=== PATIENT | female | born 1990 | race Caucasian/White ===

== ENCOUNTER 2018-06-01 03:51 | Inpatient (IN) | payer BC ==
[~2018-06-01] VITALS: Ht 172.7 cm; Wt 82.6 kg
[2018-06-01] MEDS ORDERED: OXAZEPAM 15 MG CAP PO ONE (07:15)
[2018-06-01] MEDS ORDERED: LEVO50TA5 PO (07:59)
[2018-06-01] MEDS ORDERED: ACYC400T PO (07:59)
[2018-06-01] MEDS ORDERED: SYMB16INH INH (07:59)
[2018-06-01] MEDS ORDERED: LEXA1TAB PO (07:59)
[2018-06-01] MEDS ORDERED: VITMTA PO (07:59)
[2018-06-01] MEDS ORDERED: RIZA10TA4 PO (07:59)
[2018-06-01] MEDS ORDERED: HYDR50TA70 PO (07:59)
[2018-06-01] MEDS ORDERED: NICOTINE 21MG/24HR 1 EA TRANSDERMAL TD SCH (09:00)
[2018-06-01] MEDS ORDERED: MAALOX 30 ML SUSP *UDC PO PRN (12:00)
[2018-06-01] MEDS ORDERED: traZODone 50 MG TAB PO PRN (12:00)
[2018-06-01 13:00] VITALS: BP 138/98
--- NOTE | 2018-06-01 13:42 | HPEPDOC ---
[facility] Medical History & Physical Date of Admission Jun 01, 2018 History and Physical PCP: Dr Channing Perez [place] ATTENDING: Dr. Maya Tsai HPI: 27yoF transferred from [facility] after being medically cleared. The pt called 911 after drinking 1 pint of Vodka and walking into the riley in her robe, lying in the snow to . The pt was transferred to [facility] and admitted to [facility] for unspecified depression, being medically examined today. No acute medical complaints today. Denies any fevers, chills, weakness, fatigue, CLARK, CP, SOB, cough, palpitations, abdominal pain, N/V/D or changes in bowel or bladder habits. PMHx: Anxiety Depression Self Harm, cutting. States last cut about 6 mo ago. H/O SI Alcohol use Asthma Hypothyroid Oral HSV PSHX: denies SOCHX: Resides in: [facility] Marital Status: single Kids: none Employment: [employer] Tobacco use: denies ETOH: 1 pint Vodka daily to every other day Illicit Drugs: Marijuana last used 3 mo ago IV Drug Use: Denies Tattoos done unprofessionally: Denies FAMHX: Mother: Alive, RA Father: Alive, Alcohol use Siblings: 1 brother, 1 sister Alive, well Children: none Maternal Aunt/Uncle alcohol use. Paternal cousin completed suicide. ROS: As noted in HPI, otherwise 11pt ROS of systems reviewed and remarkable only for LMP 05/30/18. PE: GEN: 27yoF, appears stated age. Well-nourished, well developed. No acute distress. Alert and oriented x 3. Pleasant, interactive. HEENT: Normocephalic, atraumatic. Pupils are equal, round, and reactive to light. Extraocular movements are intact. No nystagmus appreciated. Sclera are nonicteric. Conjunctiva without injection. Nose midline. Nasal turbinates without bogginess. EACs both patent BL. TMs both visualized and peters with good cone of light, no bulging or erythema. No facial asymmetry. Moist mucous membranes. Dentition fair. Pharynx pink and moist, no cobblestoning. Neck supple, trachea midline. No lymphadenopathy or thyromegaly appreciated. CHEST: Regular rate and rhythm, +S1, +S2 LUNGS: Clear to auscultation bilaterally. No wheezes, rales, or rhonchi. Breathing appears symmetric and easy. Patient is speaking in full sentences. No accessory muscle use. ABD: Round, soft, non-tender, non-distended. +Bowel sounds throughout. No rebound or guarding. No costovertebral angle tenderness. EXT: Pulses 2+ bilaterally dorsalis pedis and radial. No lower extremity edema appreciated. SKIN: [place], dry, warm. Capillary refill <2sec. No rashes. NEURO: Alert and oriented x 3. Cranial nerves III-XII are intact. No focal deficits appreciated. EKG: pending A&P: 27yoF transferred from [facility] after being medically cleared. The pt called 911 after drinking 1 pint of Vodka and walking into the riley in her robe , lying in the snow to . The pt was transferred to [facility] and admitted to [facility] for unspecified depression. 1. Psych. Plan per Psychiatry. Obtain baseline EKG to assure the safety of psychiatric medications as they can prolong the QT interval. 2. CBC/CMP/TSH pending. 3. Asthma. Continue Symbicort. Albuterol HFA as needed 4. Follow up with PCP on discharge. 5. Substance use. Management per psychiatry. Add MVI, Thiamine, and Folic Acid supplementation. Withdrawal protocol as per Psychiatry. 6. Synthroid. Continue Synthroid 50mcg daily. TSH pending. 7. Oral HSV. Pt takes Acyclovir daily for prevention, will continue. 8. Staff member Anthony JANSEN present throughout exam. Vital Signs Vital Signs Date Time Temp Pulse Resp B/P (MAP) Pulse Ox O2 Delivery O2 Flow Rate FiO2 06/01/18 12:48 98.4 90 16 133/71 (91) 98 Room Air Laboratory Data Labs 24H Pending Home Medications Scheduled Budesonide/Formoterol (Symbicort 160-4.5 Mcg/Act) 60 Puff/Inhaler Aers, 2 PUFF INH DAILY Escitalopram Oxalate (Lexapro) 10 Mg Tab, 20 MG PO DAILY Levothyroxine Sodium (Synthroid) 50 Mcg Tab, 50 MCG PO DAILY Multivitamins *[facility] STOCKED* (Thera M Plus *[facility] STOCKED*) 1 Tab Tab, 1 TAB PO DAILY Scheduled PRN Hydroxyzine HCl (Hydroxyzine HCl) 50 Mg Tab, 50 MG PO BID PRN for ANXIETY Rizatriptan Benzoate (Rizatriptan Benzoate Odt) 10 Mg Tab, 10 MG PO DAILY PRN for HEADACHE Miscellaneous Medications Acyclovir (Acyclovir) 400 Mg Tab, 400 MG PO Allergies Coded Allergies: No Known Allergies (Unverified , 06/01/18) Padmini Aviles Jun 01, 2018 13:42
[2018-06-01] MEDS ORDERED: ALBUTEROL 90 MCG/ACT 8GM HFA INHALER INH PRN (13:45)
[2018-06-01 14:05] LABS: HEMATOCRIT 42.8 % (36.0-47.0); HEMOGLOBIN 14.3 g/dl (12.0-15.5); MEAN CORPUSCULAR HEMOGLOBIN 30.2 pg (27.0-33.0); MEAN CORPUSCULAR HGB CONC 33.4 g/dl (32.0-36.5); MEAN CORPUSCULAR VOLUME 90.5 fl (80.0-96.0); PLATELET COUNT, AUTOMATED 334 10^3/uL (150-450); RED BLOOD COUNT 4.73 10^6/uL (4.00-5.40); WHITE BLOOD COUNT 6.3 10^3/uL (4.0-10.0)
[2018-06-01 14:27] LABS: HCG, SERUM QUALITATIVE NEGATIVE (NEGATIVE)
[2018-06-01 14:36] LABS: ALT/SGPT 41 U/L (12-78); BILIRUBIN,TOTAL 1.1 MG/DL (0.2-1.0); BLOOD UREA NITROGEN 11 MG/DL (7-18); CALCIUM LEVEL 9.3 MG/DL (8.5-10.1); CARBON DIOXIDE LEVEL 27 MEQ/L (21-32); CHLORIDE LEVEL 102 MEQ/L (98-107); CREATININE FOR GFR 0.69 MG/DL (0.55-1.30); GLOMERULAR FILTRATION RATE > 60.0 (>60); GLUCOSE, FASTING 76 MG/DL (70-100); POTASSIUM SERUM 3.8 MEQ/L (3.5-5.1); SODIUM LEVEL 137 MEQ/L (136-145); TOTAL PROTEIN 7.1 GM/DL (6.4-8.2)
[2018-06-01 15:00] VITALS: BP 135/92
[2018-06-01] MEDS: FOLIC ACID 1 MG TAB PO SCH (15:26)
[2018-06-01] MEDS: LORazepam 2 MG TAB PO PRN ×2 (15:26→23:32)
[2018-06-01] MEDS: MULTIVITAMINS/MINERALS THERAP 1 TAB PO SCH (15:26)
[2018-06-01] MEDS: THIAMINE 100 MG TAB PO SCH (15:26)
[2018-06-01 17:30] VITALS: BP 110/80
[2018-06-01 23:28] VITALS: BP 150/93
[2018-06-02] MEDS: LEVOTHYROXINE 50MCG TABLET (0.05MG) PO SCH (06:10)
[2018-06-02 06:58] VITALS: BP 127/69
[2018-06-02 09:10] VITALS: BP 130/77
[2018-06-02] MEDS: SYMBICORT 160/4.5MCG INHALER 6GM INH SCH (09:16)
[2018-06-02] MEDS: FOLIC ACID 1 MG TAB PO SCH (09:17)
[2018-06-02] MEDS: LORazepam 2 MG TAB PO PRN ×2 (09:17→14:12)
[2018-06-02] MEDS: ACYCLOVIR 200 MG CAPSULE PO SCH (09:18)
[2018-06-02] MEDS: THIAMINE 100 MG TAB PO SCH (09:18)
[2018-06-02] MEDS: MULTIVITAMINS/MINERALS THERAP 1 TAB PO SCH (09:18)
[2018-06-02 12:18] VITALS: BP 124/72
[2018-06-02] MEDS ORDERED: ESCITALOPRAM OXALATE 10 MG TAB (LEXAPRO) PO ONE (13:45)
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
[2018-06-02 14:07] VITALS: BP 127/82
[2018-06-02] MEDS: PROPRANOLOL 10 MG TAB PO SCH ×2 (15:19→20:03)
[2018-06-02 18:23] VITALS: BP 129/87
[2018-06-02] MEDS ORDERED: QUEtiapine FUMARATE 25 MG TAB PO PRN (19:45)
[2018-06-02] MEDS: ACETAMINOPHEN TAB 650MG DOSE (2X325MG) PO PRN (19:54)
[2018-06-02] MEDS: hydrOXYzine 50 MG TAB PO PRN (19:54)
[2018-06-02] MEDS ORDERED: ISOVUE-370 76% 125ML VIAL (Q9967 PER ML) As Ordered ONE (20:25)
[2018-06-02] MEDS ORDERED: DOXEPIN 10 MG CAP PO SCH (21:00)
--- NOTE | 2018-06-02 21:15 | REPVR ---
EXAM: CT Neck With Contrast EXAM DATE/TIME: 06/02/2018 8:31 PM CLINICAL HISTORY: 27 years old, female; Pain; Neck pain; Additional info: Neck trauma. . . Hanging TECHNIQUE: Imaging protocol: Axial computed tomography images of the neck with intravenous contrast. Coronal and sagittal reformatted images were created and reviewed. Radiation optimization: All CT scans at this facility use at least one of these dose optimization techniques: automated exposure control; mA and/or kV adjustment per patient size (includes targeted exams where dose is matched to clinical indication); or iterative reconstruction. Contrast material: iso 370 Contrast volume: 75 ml Contrast route: iv COMPARISON: No relevant prior studies available. FINDINGS: Sinuses: Clear paranasal sinuses. Nasopharynx: There is opacification of the normal appearing nasopharynx. Oropharynx: Normal. No significant tonsillar enlargement. Hypopharynx: Normal. Larynx: Normal. Normal epiglottis. Retropharyngeal space: Normal. Submandibular/Parotid glands: Normal. Glands are normal in size. Thyroid: Normal. No enlarged or calcified nodules. Lymph nodes: There are several lymph nodes at the right and left carotid bifurcation. Trachea: The trachea appears intact. Lungs: The apical portions of lung appear clear. Vasculature: Right vertebral artery is very small compared to the left. There is opacification of the vessels of [place]. Bones/joints: There is no evidence of bony abnormality. Soft tissues: Normal. No significant soft tissue swelling. IMPRESSION: No evidence of swelling or hematoma. Electronically signed by: Tomy Bernstein On 06/02/2018 21:15:06 PM
[2018-06-02 21:53] VITALS: BP 122/71
--- NOTE | 2018-06-03 00:41 | ECGEPIP ---
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
[2018-06-03] MEDS: LEVOTHYROXINE 50MCG TABLET (0.05MG) PO SCH (06:14)
[2018-06-03 06:39] VITALS: BP 113/74
[2018-06-03] MEDS: MULTIVITAMINS/MINERALS THERAP 1 TAB PO SCH (08:54)
[2018-06-03] MEDS: ACYCLOVIR 200 MG CAPSULE PO SCH (08:54)
[2018-06-03] MEDS: SYMBICORT 160/4.5MCG INHALER 6GM INH SCH (08:54)
[2018-06-03] MEDS: FOLIC ACID 1 MG TAB PO SCH (08:55)
[2018-06-03] MEDS: PROPRANOLOL 10 MG TAB PO SCH (08:55)
[2018-06-03] MEDS: ESCITALOPRAM OXALATE 10 MG TAB (LEXAPRO) PO SCH (08:55)
[2018-06-03] MEDS: THIAMINE 100 MG TAB PO SCH (08:55)
[2018-06-03 10:02] VITALS: BP 120/89
[2018-06-03] MEDS: LORazepam 2 MG TAB PO PRN ×3 (10:05→20:55)
[2018-06-03] MEDS ORDERED: QUEtiapine FUMARATE 100 MG TAB PO PRN (10:45)
--- NOTE | 2018-06-03 11:00 | MHIPNPDOC ---
[facility] Progress Note Progress Note DATE OF SERVICE: 06/03/18 HISTORY: Patient is a 27 -year-old , female, with a history of depression and alcohol use d/o who was transferred from [facility] after medically cleared due to drinking 2.5 pints of vodka and walking into the [place], lying in the snow with intent to , got cold and it was getting dark so she called 911 for help. Pt endorsed psychosocial stressors and triggers in the ED of getting her 2nd DWI 1mo ago, caring for her grandmother, continued work, and feelings of being from her supports. In the ED she endorsed depression, helplessness, hopelessness. She admitted to daily alcohol use. VITAL SIGNS: See below. NEW TEST RESULTS: Neck CT: no swelling or hematoma noted, wnl CURRENT MEDICATIONS: See below. MENTAL STATUS EXAMINATION: General Appearance: unkempt, disheveled, appears stated age, hospital scubs/clothing Build: average Demeanor: withdrawn Eye Contact: average Activity: average, anxious Behavior: cooperative, withdrawn Speech: clear, spontaneous, normal volume, reg/rate,rhythm,volume Mood: depressed, anxious Mood overwhelmed Affect: constricted, flat, congruent, anxious Thought Process: logical/linear, depressed, intact Thought Content (Delusions): none reported, denies intent/plan SI (unreliable as attempted to hang self with pillow case last night) , endorses passive SI, denies HI and AVH Thought Content (Other): none reported, cognitive distortions, worrisome thoughts, lacks future orientation Thought Content (Aggressive): none reported Perception (Hallucinations): none reported Perception (Other): none reported Cognition (Impairment of): none reported Cognition(Intelligence Est.): average Oriented: Awake, Alert, Oriented times three Insight: poor Judgment: poor Psychosis: Denies DIAGNOSES: 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 Pt seen and she tried to commit suicide due to all the stress in her life currently and "doesn't want to be around". States inderal isn't helpful for anxiety as "it's like taking chicklits." Also endorsing insomnia despite doxepin. Alcohol withdrawal is improving. Anxiety due to worrisome thoughts and alcohol withdrawal appear to be making overall anxiety worse. Pt states she's been thinking about suicide for awhile as she just wants her thoughts and the stress to stop and "go to sleep." States she dreads her future as she believes it will be a "hard, uphill negron" to get better and "I just don't have the energy for that now." She is very depressed with avolition, anxiety, n egative cognitive distortions, and worrisome thoughts. She has very poor coping skills and encouraged to go to groups (hasn't been going) to improve them. Advised to please tell staff when she's having thoughts to harm herself so that we can help her and provided support for her to make it through the thoughts without acting on them. Will remain on 1:1 sitter for safety. Agreeable to increasing prn seroquel for anxiety and starting seroquel prn insomnia to see if more beneficial for anxiety and sleep. States she's tolerating increase in lexapro well but waiting for it to be beneficial. SContinues to feel sad and continues to have feeling of not wanting to be alive with no current intent as is passive. MANAGEMENT PLAN: continue plan. 1:1 sitter for safety. d/c inderal and doxepin. Start seroquel prn anxiety and insomnia medications: lexapro 30mg daily seroquel 50mg q6hr prn anxiety seroquel 100mg qhs prn insomnia TIME SPENT: 30 minutes. Vital Signs Vital Signs Date Time Temp Pulse Resp B/P (MAP) Pulse Ox O2 Delivery O2 Flow Rate FiO2 06/03/18 10:02 120/89 06/03/18 08:55 72 06/03/18 06:39 99.3 14 06/01/18 17:30 100 06/01/18 12:48 Room Air Current Medications Current Medications Acetaminophen (Tylenol Tab) 650 mg Q6HP PRN PO HEADACHE or DISCOMFORT Last administered on 06/02/18at 19:54; Start 06/01/18 at 12:00 Acyclovir (Zovirax) 400 mg DAILY PO Last administered on 06/03/18at 08:54; Start 06/02/18 at 09:00 Al Hydrox/Mg Hydrox/Simethicone (Mylanta) 30 ml Q4HP PRN PO HEARTBURN/INDIGESTION; Start 06/01/18 at 12:00 Albuterol Sulfate (Proventil, Ventolin Hfa) 2 puff Q4HP PRN INH SHORTNESS OF BREATH; Start 06/01/18 at 13:45 Budesonide/ Formoterol Fumarate (Symbicort 160/ 4.5mcg) 2 puff DAILY INH Last administered on 06/03/18at 08:54; Start 06/02/18 at 09:00 Doxepin HCl (SINEquan) 10 mg QHS PO Last administered on 06/02/18 19:54; Start 06/02/18 at 21:00 Escitalopram Oxalate (Lexapro) 30 mg DAILY PO Last administered on 06/03/18at 08:55; Start 06/03/18 at 09:00 Folic Acid (Folic Acid) 1 mg DAILY PO Last administered on 06/03/18at 08:55; Start 06/01/18 at 09:00 Home Med (Med Rec Complete!) ASDIRECTED XX ; Start 06/01/18 at 08:00; Stop 06/01/18 at 08:02; Status DC Hydroxyzine HCl (Atarax) 50 mg Q6HP PRN PO ANXIETY Last administered on 06/02/18at 19:54; Start 06/02/18 at 19:45 Levothyroxine Sodium (Synthroid) 50 mcg DAILY@0600 PO Last administered on 06/03/18at 06:14; Start 06/02/18 at 06:00 Lorazepam (Ativan) 2 mg ASDIRECTED PRN PO SEE PROTOCOL Last administered on 06/03/18at 10:05; Start 06/01/18 at 15:15 Magnesium Hydroxide (Milk Of Magnesia) 30 ml DAILYPRN PRN PO CONSTIPATION; Start 06/01/18 at 12:00 Multivitamins (Theragram-M) 1 tab DAILY PO Last administered on 06/03/18at 08:54; Start 06/01/18 at 09:00 Nicotine (Nicoderm Cq 21mg) 1 patch DAILY TD ; Start 06/01/18 at 09:00; Stop 06/01/18 at 15:29; Status DC Propranolol HCl (Inderal) 10 mg TID PO Last administered on 06/03/18at 08:55; Start 06/02/18 at 16:00 Quetiapine Fumarate (SEROquel) 25 mg Q6HP PRN PO ANXIETY Last administered on 06/02/18at 19:54; Start 06/02/18 at 19:45 Thiamine HCl (Thiamine HCl) 100 mg DAILY PO Last administered on 06/03/18at 08:55; Start 06/01/18 at 09:00 Trazodone HCl (Desyrel) 50 mg QHSP PRN PO INSOMNIA; Start 06/01/18 at 12:00; Status Cancel Allergies Coded Allergies: No Known Allergies (Unverified , 06/01/18) ASHKAN RAMÍREZ DO Jun 03, 2018 11:00 am
[2018-06-03] MEDS: QUEtiapine FUMARATE 50 MG TAB PO PRN ×2 (11:25→21:34)
[2018-06-03 15:27] VITALS: BP 111/68
[2018-06-03 18:07] VITALS: BP 101/66
[2018-06-03 21:01] VITALS: BP 134/94
[2018-06-03] MEDS: MOM 30ML SUSPENSION UDC PO PRN (21:34)
[2018-06-03] MEDS: hydrOXYzine 50 MG TAB PO PRN (22:39)
[2018-06-04] MEDS: LEVOTHYROXINE 50MCG TABLET (0.05MG) PO SCH (06:09)
[2018-06-04 06:10] VITALS: BP 112/65
[2018-06-04] MEDS: FOLIC ACID 1 MG TAB PO SCH (08:03)
[2018-06-04] MEDS: hydrOXYzine 50 MG TAB PO PRN ×2 (08:03→15:05)
[2018-06-04] MEDS: MULTIVITAMINS/MINERALS THERAP 1 TAB PO SCH (08:03)
[2018-06-04] MEDS: ESCITALOPRAM OXALATE 10 MG TAB (LEXAPRO) PO SCH (08:03)
[2018-06-04] MEDS: THIAMINE 100 MG TAB PO SCH (08:03)
[2018-06-04] MEDS: SYMBICORT 160/4.5MCG INHALER 6GM INH SCH (08:04)
[2018-06-04] MEDS: ACYCLOVIR 200 MG CAPSULE PO SCH (08:04)
[2018-06-04 09:00] VITALS: BP 118/72
[2018-06-04] MEDS: ACETAMINOPHEN TAB 650MG DOSE (2X325MG) PO PRN (09:07)
[2018-06-04] MEDS: QUEtiapine FUMARATE 50 MG TAB PO PRN (09:09)
--- NOTE | 2018-06-04 11:03 | MHIPNPDOC ---
[facility] Progress Note Progress Note DATE OF SERVICE: 06/04/18 HISTORY: Patient is a 27 -year-old , female, with a history of depression and alcohol use d/o who was transferred from [facility] after medically cleared due to drinking 2.5 pints of vodka and walking [place] the [place], lying in the snow with intent to , got cold and it was getting dark so she called 911 for help. Pt endorsed psychosocial stressors and triggers in the ED of getting her 2nd DWI 1mo ago, caring for her grandmother, continued work, and feelings of being from her supports. In the ED she endorsed depression, helplessness, hopelessness. She admitted to daily alcohol use. VITAL SIGNS: See below. NEW TEST RESULTS: Neck CT: no swelling or hematoma noted, wnl CURRENT MEDICATIONS: See below. MENTAL STATUS EXAMINATION: General Appearance: unkempt, disheveled, appears stated age, hospital scrubs/clothing Build: average Demeanor: withdrawn Eye Contact: average Activity: slowed, unmotivated, anxious Behavior: cooperative, withdrawn Speech: clear, spontaneous, normal volume, reg/rate,rhythm,volume Mood: depressed, anxious, anhedonic, apathetic Mood the same Affect: constricted, flat, congruent, anxious Thought Process: logical/linear, depressed, intact Thought Content (Delusions): none reported, denies intent/plan SI (unreliable as attempted to hang self with pillow case last night) , endorses passive SI, denies HI and AVH Thought Content (Other): none reported, cognitive distortions, worrisome thoughts, lacks future orientation Thought Content (Aggressive): none reported Perception (Hallucinations): none reported Perception (Other): none reported Cognition (Impairment of): none reported Cognition(Intelligence Est.): average Oriented: Awake, Alert, Oriented times three Insight: poor Judgment: poor Psychosis: Denies DIAGNOSES: Major depressive d/o recurrent severe w/o psychosis alcohol use d/o ASSESSMENT: Pt seen and with sitter and denies feeling suicidal but continues to endorse depression and anxiety feeling as if her medication isn't really helping her. Continues to endorse worrisome thoughts creating anxiety for which seroquel during the day and at night isn't helping. Asking to increase both to see if more beneficial then. Med seeking for valium and told not as acts like alcohol on the brain and would not be beneficial but more addictive. Alcohol withdrawal is improving. She is very depressed with avolition, anxiety, negative cognitive distortions, flat/constricted affect, anhedonia, and worrisome thoughts. She has very poor coping skills and encouraged to go to groups (hasn't been going) to improve them. Advised to please tell staff when she's having thoughts to harm herself so that we can help her and provided support for her to make it through the thoughts without acting on them. Will remain on 1:1 sitter for safety. Agreeable to trying abilify in conjunction with lexapro to see if combination beneficial. Risks/benefits discussed. States she's tolerating lexapro well but waiting for it to be beneficial. Continues to feel sad and continues to have feeling of not wanting to be alive with no current intent as is passive. MANAGEMENT PLAN: continue plan. 1:1 sitter for safety. Start abilify to augment lexapro. increase seroquel for anxiety and insomnia. medications: lexapro 30mg daily abilify 5mg daily seroquel 100mg q6hr prn anxiety seroquel 200mg qhs prn insomnia TIME SPENT: 30 minutes. Vital Signs Vital Signs Date Time Temp Pulse Resp B/P (MAP) Pulse Ox O2 Delivery O2 Flow Rate FiO2 06/04/18 06:10 98.5 77 12 112/65 (81) 06/01/18 17:30 100 06/01/18 12:48 Room Air Current Medications Current Medications Acetaminophen (Tylenol Tab) 650 mg Q6HP PRN PO HEADACHE or DISCOMFORT Last administered on 06/04/18at 09:07; Start 06/01/18 at 12:00 Acyclovir (Zovirax) 400 mg DAILY PO Last administered on 06/04/18at 08:04; Start 06/02/18 at 09:00 Al Hydrox/Mg Hydrox/Simethicone (Mylanta) 30 ml Q4HP PRN PO HEARTBURN/INDIGESTION; Start 06/01/18 at 12:00 Albuterol Sulfate (Proventil, Ventolin Hfa) 2 puff Q4HP PRN INH SHORTNESS OF BREATH; Start 06/01/18 at 13:45 Budesonide/ Formoterol Fumarate (Symbicort 160/ 4.5mcg) 2 puff DAILY INH Last administered on 06/04/18 08:04; Start 06/02/18 at 09:00 Doxepin HCl (SINEquan) 10 mg QHS PO Last administered on 06/02/18 19:54; Start 06/02/18 at 21:00; Stop 06/03/18 at 11:01; Status DC Escitalopram Oxalate (Lexapro) 30 mg DAILY PO Last administered on 06/04/18 08:03; Start 06/03/18 at 09:00 Folic Acid (Folic Acid) 1 mg DAILY PO Last administered on 06/04/18 08:03; Start 06/01/18 at 09:00 Home Med (Med Rec Complete!) ASDIRECTED XX ; Start 06/01/18 at 08:00; Stop 06/01/18 at 08:02; Status DC Hydroxyzine HCl (Atarax) 50 mg Q6HP PRN PO ANXIETY Last administered on 06/04/18 08:03; Start 06/02/18 at 19:45 Levothyroxine Sodium (Synthroid) 50 mcg DAILY@0600 PO Last administered on 06/04/18at 06:09; Start 06/02/18 at 06:00 Lorazepam (Ativan) 2 mg ASDIRECTED PRN PO SEE PROTOCOL Last administered on 06/03/18 20:55; Start 06/01/18 at 15:15 Magnesium Hydroxide (Milk Of Magnesia) 30 ml DAILYPRN PRN PO CONSTIPATION Last administered on 06/03/18at 21:34; Start 06/01/18 at 12:00 Multivitamins (Theragram-M) 1 tab DAILY PO Last administered on 06/04/18at 08:03; Start 06/01/18 at 09:00 Nicotine (Nicoderm Cq 21mg) 1 patch DAILY TD ; Start 06/01/18 at 09:00; Stop 06/01/18 at 15:29; Status DC Propranolol HCl (Inderal) 10 mg TID PO Last administered on 06/03/18at 08:55; Start 06/02/18 at 16:00; Stop 06/03/18 at 11:01; Status DC Quetiapine Fumarate (SEROquel) 25 mg Q6HP PRN PO ANXIETY Last administered on 06/02/18 19:54; Start 06/02/18 at 19:45; Stop 06/03/18 at 10:49; Status DC Quetiapine Fumarate (SEROquel) 50 mg Q6HP PRN PO ANXIETY/AGITATION Last administered on 06/04/18at 09:09; Start 06/03/18 at 10:45 Quetiapine Fumarate (SEROquel) 100 mg QHSP PRN PO INSOMNIA Last administered on 06/03/18at 20:55; Start 06/03/18 at 10:45 Thiamine HCl (Thiamine HCl) 100 mg DAILY PO Last administered on 06/04/18at 08:03; Start 06/01/18 at 09:00 Trazodone HCl (Desyrel) 50 mg QHSP PRN PO INSOMNIA; Start 06/01/18 at 12:00; Status Cancel Allergies Coded Allergies: No Known Allergies (Unverified , 06/01/18) ASHKAN RAMÍREZ DO Jun 04, 2018 11:03 am
[2018-06-04] MEDS: QUEtiapine FUMARATE 100 MG TAB PO PRN (15:51)
[2018-06-04 18:00] VITALS: BP 113/78
[2018-06-04 20:30] VITALS: BP 132/64
[2018-06-04] MEDS: QUEtiapine FUMARATE 200 MG TAB PO SCH (21:00)
[2018-06-05] MEDS: LEVOTHYROXINE 50MCG TABLET (0.05MG) PO SCH (06:14)
[2018-06-05 06:48] VITALS: BP 125/62
[2018-06-05] MEDS: FOLIC ACID 1 MG TAB PO SCH (08:48)
[2018-06-05] MEDS: hydrOXYzine 50 MG TAB PO PRN ×2 (08:48→18:00)
[2018-06-05] MEDS: MULTIVITAMINS/MINERALS THERAP 1 TAB PO SCH (08:48)
[2018-06-05] MEDS: THIAMINE 100 MG TAB PO SCH (08:48)
[2018-06-05] MEDS: ESCITALOPRAM OXALATE 10 MG TAB (LEXAPRO) PO SCH (08:48)
[2018-06-05] MEDS: ACYCLOVIR 200 MG CAPSULE PO SCH (08:48)
[2018-06-05] MEDS: SYMBICORT 160/4.5MCG INHALER 6GM INH SCH (09:22)
--- NOTE | 2018-06-05 09:47 | MHIPNPDOC ---
[facility] Progress Note Progress Note DATE OF SERVICE: 06/05/18 HISTORY: Patient is a 27 -year-old , female, with a history of depression and alcohol use d/o who was transferred from [facility] after medically cleared due to drinking 2.5 pints of vodka and walking [place] the [place], lying in the snow with intent to , got cold and it was getting dark so she called 911 for help. Pt endorsed psychosocial stressors and triggers in the ED of getting her 2nd DWI 1mo ago, caring for her grandmother, continued work, and feelings of being from her supports. In the ED she endorsed depression, helplessness, hopelessness. She admitted to daily alcohol use. VITAL SIGNS: See below. NEW TEST RESULTS: Neck CT: no swelling or hematoma noted, wnl CURRENT MEDICATIONS: See below. MENTAL STATUS EXAMINATION: General Appearance: unkempt, disheveled, appears stated age, hospital scrubs/clothing Build: average Demeanor: withdrawn Eye Contact: average Activity: slowed, unmotivated, less anxious Behavior: cooperative, withdrawn Speech: clear, spontaneous, normal volume, reg/rate,rhythm,volume Mood: depressed, less anxious, anhedonic, apathetic Mood better Affect: constricted, flat, congruent, less anxious Thought Process: logical/linear, depressed, intact Thought Content (Delusions): none reported, denies SI (States she will not harm herself if sitter d/c and will talk to staff first should she have thoughts of self farm or emotional distress so she can be help thru her emotions safely as she did attempt to hang herself with a pillow case on second night of admission) , denies HI and AVH Thought Content (Other): none reported, cognitive distortions, worrisome thoug hts, lacks future orientation Thought Content (Aggressive): none reported Perception (Hallucinations): none reported Perception (Other): none reported Cognition (Impairment of): none reported Cognition(Intelligence Est.): average Oriented: Awake, Alert, Oriented times three Insight: poor Judgment: poor Psychosis: Denies DIAGNOSES: Major depressive d/o recurrent severe w/o psychosis alcohol use d/o ASSESSMENT: Pt seen and states she feels better with the increase in seroquel for her anxiety and the start of abilify. Feels more calm and denies SI. S tates she will not harm herself if sitter d/c and will talk to staff first should she have thoughts of self farm or emotional distress so she can be help thru her emotions safely. States she would like to be d/c directly to inpatient substance abuse rehab for her alcohol abuse and is adamant about not wanting to go home as it is a "toxic" place for her b/c she lives with her mother. Encouraged to call rehabs on her own as d/c digital media planner also calls to speed referrals alone for a bed to bed d/c. Alcohol withdrawal is improving. She appears slightly less depressed although she still has negative cognitive distortions, flat/constricted affect, anhedonia, and worrisome thoughts. She has very poor coping skills and has started to attend some groups to improve th em. Advised to please tell staff when she's having thoughts to harm herself so that we can help her and provided support for her to make it through the thoughts without acting on them. Feels her meds are beneficial and she's tolerating them well, denies side effects. Is sleeping better at night with seroquel. MANAGEMENT PLAN: continue plan. d/c 1:1 sitter for safety. medications: lexapro 30mg daily abilify 5mg daily seroquel 100mg q6hr prn anxiety seroquel 200mg qhs prn insomnia TIME SPENT: 30 minutes. Vital Signs Vital Signs Date Time Temp Pulse Resp B/P (MAP) Pulse Ox O2 Delivery O2 Flow Rate FiO2 06/05/18 06:48 99.6 74 16 125/62 (83) 06/01/18 17:30 100 06/01/18 12:48 Room Air Current Medications Current Medications Acetaminophen (Tylenol Tab) 650 mg Q6HP PRN PO HEADACHE or DISCOMFORT Last administered on 06/04/18at 09:07; Start 06/01/18 at 12:00 Acyclovir (Zovirax) 400 mg DAILY PO Last administered on 06/05/18at 08:48; Start 06/02/18 at 09:00 Al Hydrox/Mg Hydrox/Simethicone (Mylanta) 30 ml Q4HP PRN PO HEARTBUR N/INDIGESTION; Start 06/01/18 at 12:00 Albuterol Sulfate (Proventil, Ventolin Hfa) 2 puff Q4HP PRN INH SHORTNESS OF BREATH; Start 06/01/18 at 13:45 Aripiprazole (AbiLIFY) 5 mg DAILY PO Last administered on 06/05/18 08:48; Start 06/05/18 at 09:00 Budesonide/ Formoterol Fumarate (Symbicort 160/ 4.5mcg) 2 puff DAILY INH Last administered on 06/05/18 09:22; Start 06/02/18 at 09:00 Doxepin HCl (SINEquan) 10 mg QHS PO Last administered on 06/02/18 19:54; Start 06/02/18 at 21:00; Stop 06/03/18 at 11:01; Status DC Escitalopram Oxalate (Lexapro) 30 mg DAILY PO Last administered on 06/05/18 08:48; Start 06/03/18 at 09:00 Folic Acid (Folic Acid) 1 mg DAILY PO Last administered on 06/05/18 08:48; Start 06/01/18 at 09:00 Home Med (Med Rec Complete!) ASDIRECTED XX ; Start 06/01/18 at 08:00; Stop 06/01/18 at 08:02; Status DC Hydroxyzine HCl (Atarax) 50 mg Q6HP PRN PO ANXIETY Last administered on 06/05/18 08:48; Start 06/02/18 at 19:45 Levothyroxine Sodium (Synthroid) 50 mcg DAILY@0600 PO Last administered on 06/05/18 06:14; Start 06/02/18 at 06:00 Lorazepam (Ativan) 2 mg ASDIRECTED PRN PO SEE PROTOCOL Last administered on 06/03/18 20:55; Start 06/01/18 at 15:15 Magnesium Hydroxide (Milk Of Magnesia) 30 ml DAILYPRN PRN PO CONSTIPATION Last administered on 06/03/18 21:34; Start 06/01/18 at 12:00 Multivitamins (Theragram-M) 1 tab DAILY PO Last administered on 06/05/18 08:48; Start 06/01/18 at 09:00 Nicotine (Nicoderm Cq 21mg) 1 patch DAILY TD ; Start 06/01/18 at 09:00; Stop 06/01/18 at 15:29; Status DC Propranolol HCl (Inderal) 10 mg TID PO Last administered on 06/03/18at 08:55; Start 06/02/18 at 16:00; Stop 06/03/18 at 11:01; Status DC Quetiapine Fumarate (SEROquel) 25 mg Q6HP PRN PO ANXIETY Last administered on 06/02/18at 19:54; Start 06/02/18 at 19:45; Stop 06/03/18 at 10:49; Status DC Quetiapine Fumarate (SEROquel) 50 mg Q6HP PRN PO ANXIETY/AGITATION Last administered on 06/04/18at 09:09; Start 06/03/18 at 10:45; Stop 06/04/18 at 11:06; Status DC Quetiapine Fumarate (SEROquel) 100 mg Q6HP PRN PO ANXIETY/AGITATION Last administered on 06/04/18at 15:51; Start 06/04/18 at 11:15 Quetiapine Fumarate (SEROquel) 100 mg QHSP PRN PO INSOMNIA Last administered on 06/03/18at 20:55; Start 06/03/18 at 10:45; Stop 06/04/18 at 11:06; Status DC Quetiapine Fumarate (SEROquel) 200 mg QHS PO ; Start 06/04/18 at 21:00 Thiamine HCl (Thiamine HCl) 100 mg DAILY PO Last administered on 06/05/18at 0 8:48; Start 06/01/18 at 09:00 Trazodone HCl (Desyrel) 50 mg QHSP PRN PO INSOMNIA; Start 06/01/18 at 12:00; Status Cancel Allergies Coded Allergies: No Known Allergies (Unverified , 06/01/18) ASHKAN RAMÍREZ DO Jun 05, 2018 9:47 am
[2018-06-05 17:57] VITALS: BP 125/70
[2018-06-05] MEDS: ACETAMINOPHEN TAB 650MG DOSE (2X325MG) PO PRN (18:00)
[2018-06-05 18:04] VITALS: BP 125/70
[2018-06-05] MEDS: QUEtiapine FUMARATE 200 MG TAB PO SCH (20:09)
[2018-06-06 06:14] VITALS: BP 120/69
[2018-06-06] MEDS: LEVOTHYROXINE 50MCG TABLET (0.05MG) PO SCH (06:25)
[2018-06-06 07:30] VITALS: BP 120/69
[2018-06-06] MEDS: SYMBICORT 160/4.5MCG INHALER 6GM INH SCH (09:06)
[2018-06-06] MEDS: ACYCLOVIR 200 MG CAPSULE PO SCH (09:06)
[2018-06-06] MEDS: MULTIVITAMINS/MINERALS THERAP 1 TAB PO SCH (09:06)
[2018-06-06] MEDS: ESCITALOPRAM OXALATE 10 MG TAB (LEXAPRO) PO SCH (09:07)
[2018-06-06] MEDS: THIAMINE 100 MG TAB PO SCH (09:07)
[2018-06-06] MEDS: hydrOXYzine 50 MG TAB PO PRN ×2 (09:07→15:57)
[2018-06-06] MEDS: FOLIC ACID 1 MG TAB PO SCH (09:07)
[2018-06-06 14:03] VITALS: BP 119/74
[2018-06-06] MEDS: ACETAMINOPHEN TAB 650MG DOSE (2X325MG) PO PRN (15:57)
[2018-06-06 18:00] VITALS: BP 117/75
[2018-06-06] MEDS: QUEtiapine FUMARATE 200 MG TAB PO SCH (20:26)
[2018-06-07] MEDS: LEVOTHYROXINE 50MCG TABLET (0.05MG) PO SCH (05:27)
[2018-06-07] MEDS: hydrOXYzine 50 MG TAB PO PRN ×2 (05:27→17:43)
[2018-06-07 06:32] VITALS: BP 116/70
[2018-06-07] MEDS: FOLIC ACID 1 MG TAB PO SCH (09:10)
[2018-06-07] MEDS: SYMBICORT 160/4.5MCG INHALER 6GM INH SCH (09:10)
[2018-06-07] MEDS: MULTIVITAMINS/MINERALS THERAP 1 TAB PO SCH (09:11)
[2018-06-07] MEDS: ACYCLOVIR 200 MG CAPSULE PO SCH (09:11)
[2018-06-07] MEDS: THIAMINE 100 MG TAB PO SCH (09:11)
[2018-06-07] MEDS: ESCITALOPRAM OXALATE 10 MG TAB (LEXAPRO) PO SCH (09:11)
[2018-06-07 18:00] VITALS: BP 127/80
[2018-06-07] MEDS: ACETAMINOPHEN TAB 650MG DOSE (2X325MG) PO PRN (18:44)
[2018-06-07] MEDS: QUEtiapine FUMARATE 200 MG TAB PO SCH (21:27)
[2018-06-08 06:00] VITALS: BP 118/65
[2018-06-08] MEDS: LEVOTHYROXINE 50MCG TABLET (0.05MG) PO SCH (06:02)
[2018-06-08] MEDS: SYMBICORT 160/4.5MCG INHALER 6GM INH SCH (08:59)
[2018-06-08] MEDS: ESCITALOPRAM OXALATE 10 MG TAB (LEXAPRO) PO SCH (09:01)
[2018-06-08] MEDS: MULTIVITAMINS/MINERALS THERAP 1 TAB PO SCH (09:01)
[2018-06-08] MEDS: FOLIC ACID 1 MG TAB PO SCH (09:01)
[2018-06-08] MEDS: ACYCLOVIR 200 MG CAPSULE PO SCH (09:01)
[2018-06-08] MEDS: THIAMINE 100 MG TAB PO SCH (09:02)
--- NOTE | 2018-06-08 09:55 | MHIPNPDOC ---
[facility] Progress Note Progress Note DATE OF SERVICE: 06/08/18 HISTORY: Patient is a 27 -year-old , female, with a history of depression and alcohol use d/o who was transferred from [facility] after medically cleared due to drinking 2.5 pints of vodka and walking [place] the [place], lying in the snow with intent to , got cold and it was getting dark so she called 911 for help. Pt endorsed psychosocial stressors and triggers in the ED of getting her 2nd DWI 1mo ago, caring for her grandmother, continued work, and feelings of being from her supports. In the ED she endorsed depression, helplessness, hopelessness. She admitted to daily alcohol use. VITAL SIGNS: See below. NEW TEST RESULTS: Neck CT: no swelling or hematoma noted, wnl CURRENT MEDICATIONS: See below. MENTAL STATUS EXAMINATION: General Appearance: clean, appears stated age, hospital scrubs/clothing Build: average Demeanor: less withdrawn Eye Contact: average Activity: slowed, less anxious Behavior: cooperative, withdrawn Speech: clear, spontaneous, normal volume, reg/rate,rhythm,volume Mood: depressed, less anxious Mood ok Affect: less constricted, flat, congruent, less anxious Thought Process: logical/linear, depressed, intact Thought Content (Delusions): none reported, denies SI (States she will not harm herself if sitter d/c and will talk to staff first should she have thoughts of self farm or emotional distress so she can be help thru her emotions safely as she did attempt to hang herself with a pillow case on second night of admission) , denies HI and AVH Thought Content (Other): none reported, cognitive distortions, worrisome thoughts, lacks future orientation Thought Content (Aggressive): none reported Perception (Hallucinations): none reported Perception (Other): none reported Cognition (Impairment of): none reported Cognition(Intelligence Est.): average Oriented: Awake, Alert, Oriented times three Insight: fair Judgment: fair Psychosis: Denies DIAGNOSES: Major depressive d/o recurrent severe w/o psychosis alcohol use d/o ASSESSMENT: Pt seen and states she feels she's doing better and is really finding abilify beneficial for mood and anxiety. Motivated to go directly to rehab from [facility] and states she'll start calling rehabs today to speed up available bed date and acceptance. States she can have her mother bring her s ome of her belongings but due to poor relationship with mother would prefer to not call or see her so will have d/c enterprise resource planner arrange with mother for pt's things to be brought. Feels more calm and denies SI. Denies alcohol withdrawal. She appears less depressed although she still has negative cognitive distortions, flat/constricted affect, and worrisome thoughts. States she is attending groups and actively participating, finding it beneficial. Advised to please tell staff when she's having thoughts to harm herself so that we can help her and provided support for her to make it through the thoughts without acting on them. Feels h er meds are beneficial and she's tolerating them well, denies side effects. Is sleeping well at night with seroquel. Feels safe here. MANAGEMENT PLAN: continue plan. medications: lexapro 30mg daily abilify 5mg daily seroquel 100mg q6hr prn anxiety seroquel 200mg qhs prn insomnia TIME SPENT: 30 minutes. Vital Signs Vital Signs Date Time Temp Pulse Resp B/P (MAP) Pulse Ox O2 Delivery O2 Flow Rate FiO2 06/08/18 06:00 98.4 66 18 118/65 (82) Current Medications Current Medications Acetaminophen (Tylenol Tab) 650 mg Q6HP PRN PO HEADACHE or DISCOMFORT Last administered on 06/07/18 18:44; Start 06/01/18 at 12:00 Acyclovir (Zovirax) 400 mg DAILY PO Last administered on 06/08/18 09:01; Start 06/02/18 at 09:00 Al Hydrox/Mg Hydrox/Simethicone (Mylanta) 30 ml Q4HP PRN PO HEARTBURN/INDIGE STION; Start 06/01/18 at 12:00 Albuterol Sulfate (Proventil, Ventolin Hfa) 2 puff Q4HP PRN INH SHORTNESS OF BREATH; Start 06/01/18 at 13:45 Aripiprazole (AbiLIFY) 5 mg DAILY PO Last administered on 06/08/18at 09:01; Start 06/05/18 at 09:00 Budesonide/ Formoterol Fumarate (Symbicort 160/ 4.5mcg) 2 puff DAILY INH Last administered on 06/08/18at 08:59; Start 06/02/18 at 09:00 Doxepin HCl (SINEquan) 10 mg QHS PO Last administered on 06/02/18 19:54; Start 06/02/18 at 21:00; Stop 06/03/18 at 11:01; Status DC Escitalopram Oxalate (Lexapro) 30 mg DAILY PO Last administered on 06/08/18 09:01; Start 06/03/18 at 09:00 Folic Acid (Folic Acid) 1 mg DAILY PO Last administered on 06/08/18at 09:01; Start 06/01/18 at 09:00 Home Med (Med Rec Complete!) ASDIRECTED XX ; Start 06/01/18 at 08:00; Stop 06/01/18 at 08:02; Status DC Hydroxyzine HCl (Atarax) 50 mg Q6HP PRN PO ANXIETY Last administered on 06/07/18at 17:43; Start 06/02/18 at 19:45 Levothyroxine Sodium (Synthroid) 50 mcg DAILY@0600 PO Last administered on 06/08/18at 06:02; Start 06/02/18 at 06:00 Lorazepam (Ativan) 2 mg ASDIRECTED PRN PO SEE PROTOCOL Last administered on 06/03/18at 20:55; Start 06/01/18 at 15:15; Stop 06/07/18 at 16:09; Status DC Magnesium Hydroxide (Milk Of Magnesia) 30 ml DAILYPRN PRN PO CONSTIPATION Last administered on 06/03/18at 21:34; Start 06/01/18 at 12:00 Miscellaneous (Unresolved Clarification Entry) SEE LABEL COMMENTS DAILY XX ; Start 06/07/18 at 09:00; Stop 06/07/18 at 16:18; Status DC Miscellaneous (Unresolved Clarification Entry) SEE LABEL COMMENTS DAILY XX ; Start 06/08/18 at 09:00 Multivitamins (Theragram-M) 1 tab DAILY PO Last administered on 06/08/18at 0 9:01; Start 06/01/18 at 09:00 Nicotine (Nicoderm Cq 21mg) 1 patch DAILY TD ; Start 06/01/18 at 09:00; Stop 06/01/18 at 15:29; Status DC Propranolol HCl (Inderal) 10 mg TID PO Last administered on 06/03/18at 08:55; Start 06/02/18 at 16:00; Stop 06/03/18 at 11:01; Status DC Quetiapine Fumarate (SEROquel) 25 mg Q6HP PRN PO ANXIETY Last administered on 06/02/18at 19:54; Start 06/02/18 at 19:45; Stop 06/03/18 at 10:49; Status DC Quetiapine Fumarate (SEROquel) 50 mg Q6HP PRN PO ANXIETY/AGITATION Last administered on 06/04/18at 09:09; Start 06/03/18 at 10:45; Stop 06/04/18 at 11:06; Status DC Quetiapine Fumarate (SEROquel) 100 mg Q6HP PRN PO ANXIETY/AGITATION Last administered on 06/04/18at 15:51; Start 06/04/18 at 11:15 Quetiapine Fumarate (SEROquel) 100 mg QHSP PRN PO INSOMNIA Last administered on 06/03/18at 20:55; Start 06/03/18 at 10:45; Stop 06/04/18 at 11:06; Status DC Quetiapine Fumarate (SEROquel) 200 mg QHS PO Last administered on 06/07/18at 21:27; Start 06/04/18 at 21:00 Thiamine HCl (Thiamine HCl) 100 mg DAILY PO Last administered on 06/08/18at 09:02; Start 06/01/18 at 09:00 Trazodone HCl (Desyrel) 50 mg QHSP PRN PO INSOMNIA; Start 06/01/18 at 12:00; Status Cancel Allergies Coded Allergies: No Known Allergies (Unverified , 06/01/18) ASHKAN RAMÍREZ DO Jun 08, 2018 9:55 am
[2018-06-08] MEDS: ACETAMINOPHEN TAB 650MG DOSE (2X325MG) PO PRN (09:56)
[2018-06-08] MEDS ORDERED: RIZATRIPTAN MLT 10 MG TAB PO PRN (11:30)
[2018-06-08 18:00] VITALS: BP 110/59
[2018-06-08] MEDS: QUEtiapine FUMARATE 200 MG TAB PO SCH (21:13)
[2018-06-09] MEDS: hydrOXYzine 50 MG TAB PO PRN (01:21)
[2018-06-09] MEDS: LEVOTHYROXINE 50MCG TABLET (0.05MG) PO SCH (06:15)
[2018-06-09 06:46] VITALS: BP 113/63
[2018-06-09] MEDS: ACYCLOVIR 200 MG CAPSULE PO SCH (08:51)
[2018-06-09] MEDS: THIAMINE 100 MG TAB PO SCH (08:53)
[2018-06-09] MEDS: MULTIVITAMINS/MINERALS THERAP 1 TAB PO SCH (08:53)
[2018-06-09] MEDS: SYMBICORT 160/4.5MCG INHALER 6GM INH SCH (08:53)
[2018-06-09] MEDS: FOLIC ACID 1 MG TAB PO SCH (08:53)
[2018-06-09] MEDS: ESCITALOPRAM OXALATE 10 MG TAB (LEXAPRO) PO SCH (08:53)
--- NOTE | 2018-06-09 10:40 | MHIPNPDOC ---
[facility] Progress Note Progress Note DATE OF SERVICE: 06/09/18 HISTORY: Patient is a 27 -year-old , female, with a history of depression and alcohol use d/o who was transferred from [facility] after medically cleared due to drinking 2.5 pints of vodka and walking into the [place], lying in the snow with intent to , got cold and it was getting dark so she called 911 for help. Pt endorsed psychosocial stressors and triggers in the ED of getting her 2nd DWI 1mo ago, caring for her grandmother, continued work, and feelings of being from her supports. In the ED she endorsed depression, helplessness, hopelessness. She admitted to daily alcohol use. VITAL SIGNS: See below. NEW TEST RESULTS: Neck CT: no swelling or hematoma noted, wnl CURRENT MEDICATIONS: See below. MENTAL STATUS EXAMINATION: General Appearance: clean, appears stated age, hospital scrubs/clothing Build: average Demeanor: less withdrawn Eye Contact: average Activity: slowed, less anxious Behavior: cooperative, less withdrawn Speech: clear, spontaneous, normal volume, reg/rate,rhythm,volume Mood: depressed, less anxious Mood ok Affect: less constricted, flat, congruent, less anxious Thought Process: logical/linear, depressed, intact, preoccupied with fear of going home due to poor relationship with mother that refuses to call or allow treatment team to reach out to her Thought Content (Delusions): none reported, denies SI yet highly concerned pt may attempt suicide if not discharged directly to rehab as endorses intense fear of going home and interacting with her mother (States she will not harm herself if sitter d/c and will talk to staff first should she have thoughts of self farm or emotional distress so she can be help thru her emotions safely as she did attempt to hang herself with a pillow case on second night of admission) , denies HI and AVH Thought Content (Other): none reported, cognitive distortions, worrisome thoughts, lacks future orientation Thought Content (Aggressive): none reported Perception (Hallucinations): none reported Perception (Other): none reported Cognition (Impairment of): none reported Cognition(Intelligence Est.): average Oriented: Awake, Alert, Oriented times three Insight: fair Judgment: fair Psychosis: Denies DIAGNOSES: Major depressive d/o recurrent severe w/o psychosis alcohol use d/o ASSESSMENT: Pt seen and states and is endorsing migraine type headaches that are unilateral and on the rt side. WAs given Rizatriptan to relieve but not fully beneficial. Will also provide motrin prn pain. Discussed that could be a side effect of increasing lexapro and should improve with time and tolerance. States she finding abilify beneficial for mood and anxiety and tolerating well w/o side effects. Motivated to go directly to rehab from [facility] and states she'll start calling rehabs today to speed up available bed date and acceptance. Pt appears very fearful to even reach out to her mother and friends at home (or even allow treatment team to) and decides that she doesn't want to call for her belongings to be brought and "I don't want to have to get caught up in all that." Pt's fear of home is concerning and considering she attempted to harm herself on the unit during second night of admission the treatment team and I are highly concerned that pt will attempt suicide again if d/c home prior to starting rehab. Pt so fearful doesn't even want to consider going home unless a rn endoscopy there with her to keep her safe. Appears to be mostly due to difficult relationship with mother and fear of hearing she disappointed her mother (be blamed for her mental health disease). Feels more calm and denies SI. Denies alcohol withdrawal. She appears less depressed although she still has negative cognitive distortions, flat/constricted affect, and worrisome thoughts. States she is attending groups and actively participating, finding it beneficial. Advised to please tell staff when she's having thoughts to harm herself so that we can help her and provided support for her to make it through the thoughts without acting on them. Endorses difficulty maintaining sleep and agreeable to increasing seroquel to 300mg qhs. Feels safe here. MANAGEMENT PLAN: continue plan. medications: lexapro 30mg daily abilify 5mg daily seroquel 100mg q6hr prn anxiety seroquel 300mg qhs prn insomnia TIME SPENT: 30 minutes. Vital Signs Vital Signs Date Time Temp Pulse Resp B/P (MAP) Pulse Ox O2 Delivery O2 Flow Rate FiO2 06/09/18 06:46 98.8 67 14 113/63 (80) Current Medications Current Medications Acetaminophen (Tylenol Tab) 650 mg Q6HP PRN PO HEADACHE or DISCOMFORT Last administered on 06/08/18 09:56; Start 06/01/18 at 12:00 Acyclovir (Zovirax) 400 mg DAILY PO Last administered on 06/09/18 08:51; Start 06/02/18 at 09:00 Al Hydrox/Mg Hydrox/Simethicone (Mylanta) 30 ml Q4HP PRN PO HEARTBURN/INDIGESTION; Start 06/01/18 at 12:00 Albuterol Sulfate (Proventil, Ventolin Hfa) 2 puff Q4HP PRN INH SHORTNESS OF BREATH; Start 06/01/18 at 13:45 Aripiprazole (AbiLIFY) 5 mg DAILY PO Last administered on 06/09/18 08:51; Start 06/05/18 at 09:00 Budesonide/ Formoterol Fumarate (Symbicort 160/ 4.5mcg) 2 puff DAILY INH Last administered on 06/09/18 08:53; Start 06/02/18 at 09:00 Doxepin HCl (SINEquan) 10 mg QHS PO Last administered on 06/02/18 19:54; Start 06/02/18 at 21:00; Stop 06/03/18 at 11:01; Status DC Escitalopram Oxalate (Lexapro) 30 mg DAILY PO Last administered on 06/09/18 08:53; Start 06/03/18 at 09:00 Folic Acid (Folic Acid) 1 mg DAILY PO Last administered on 06/09/18 08:53; Start 06/01/18 at 09:00 Home Med (Med Rec Complete!) ASDIRECTED XX ; Start 06/01/18 at 08:00; Stop 06/01/18 at 08:02; Status DC Hydroxyzine HCl (Atarax) 50 mg Q6HP PRN PO ANXIETY Last administered on 06/09/18 01:21; Start 06/02/18 at 19:45 Levothyroxine Sodium (Synthroid) 50 mcg DAILY@0600 PO Last administered on 06/09/18 06:15; Start 06/02/18 at 06:00 Lorazepam (Ativan) 2 mg ASDIRECTED PRN PO SEE PROTOCOL Last administered on 06/03/18 20:55; Start 06/01/18 at 15:15; Stop 06/07/18 at 16:09; Status DC Magnesium Hydroxide (Milk Of Magnesia) 30 ml DAILYPRN PRN PO CONSTIPATION Last administered on 06/03/18at 21:34; Start 06/01/18 at 12:00 Miscellaneous (Unresolved Clarification Entry) SEE LABEL COMMENTS DAILY XX ; Start 06/07/18 at 09:00; Stop 06/07/18 at 16:18; Status DC Miscellaneous (Unresolved Clarification Entry) SEE LABEL COMMENTS DAILY XX ; Start 06/08/18 at 09:00; Stop 06/08/18 at 13:35; Status DC Multivitamins (Theragram-M) 1 tab DAILY PO Last administered on 06/09/18at 08:53; Start 06/01/18 at 09:00 Nicotine (Nicoderm Cq 21mg) 1 patch DAILY TD ; Start 06/01/18 at 09:00; Stop 06/01/18 at 15:29; Status DC Propranolol HCl (Inderal) 10 mg TID PO Last administered on 06/03/18at 08:55; Start 06/02/18 at 16:00; Stop 06/03/18 at 11:01; Status DC Quetiapine Fumarate (SEROquel) 25 mg Q6HP PRN PO ANXIETY Last administered on 06/02/18at 19:54; Start 06/02/18 at 19:45; Stop 06/03/18 at 10:49; Status DC Quetiapine Fumarate (SEROquel) 50 mg Q6HP PRN PO ANXIETY/AGITATION Last administered on 06/04/18at 09:09; Start 06/03/18 at 10:45; Stop 06/04/18 at 11:06; Status DC Quetiapine Fumarate (SEROquel) 100 mg Q6HP PRN PO ANXIETY/AGITATION Last administered on 06/04/18at 15:51; Start 06/04/18 at 11:15 Quetiapine Fumarate (SEROquel) 100 mg QHSP PRN PO INSOMNIA Last administered on 06/03/18at 20:55; Start 06/03/18 at 10:45; Stop 06/04/18 at 11:06; Status DC Quetiapine Fumarate (SEROquel) 200 mg QHS PO Last administered on 06/08/18at 21:13; Start 06/04/18 at 21:00 Rizatriptan Benzoate (Maxalt-Sales Operations Consultant) 10 mg DAILY PRN PO HEADACHE Last administered on 06/08/18at 12:51; Start 06/08/18 at 11:30 Thiamine HCl (Thiamine HCl) 100 mg DAILY PO Last administered on 06/09/18at 08:53; Start 06/01/18 at 09:00 Trazodone HCl (Desyrel) 50 mg QHSP PRN PO INSOMNIA; Start 06/01/18 at 12:00; Status Cancel Allergies Coded Allergies: No Known Allergies (Unverified , 06/01/18) ASHKAN RAMÍREZ DO Jun 09, 2018 10:40 am
[2018-06-09] MEDS ORDERED: IBUPROFEN 800 MG TAB PO PRN (10:45)
[2018-06-09 18:00] VITALS: BP 127/83
[2018-06-09] MEDS: QUEtiapine FUMARATE 100 MG TAB PO SCH (21:25)
[2018-06-10] MEDS: LEVOTHYROXINE 50MCG TABLET (0.05MG) PO SCH (06:14)
[2018-06-10 06:48] VITALS: BP 117/68
[2018-06-10] MEDS: SYMBICORT 160/4.5MCG INHALER 6GM INH SCH (09:28)
[2018-06-10] MEDS: MULTIVITAMINS/MINERALS THERAP 1 TAB PO SCH (09:29)
[2018-06-10] MEDS: ACYCLOVIR 200 MG CAPSULE PO SCH (09:29)
[2018-06-10] MEDS: FOLIC ACID 1 MG TAB PO SCH (09:29)
[2018-06-10] MEDS: ESCITALOPRAM OXALATE 10 MG TAB (LEXAPRO) PO SCH (09:29)
[2018-06-10] MEDS: THIAMINE 100 MG TAB PO SCH (09:29)
--- NOTE | 2018-06-10 10:44 | MHIPNPDOC ---
[facility] Progress Note Progress Note DATE OF SERVICE: 06/10/18 HISTORY: Patient is a 27 -year-old , female, with a history of depression and alcohol use d/o who was transferred from [facility] after medically cleared due to drinking 2.5 pints of vodka and walking into the [place], lying in the snow with intent to , got cold and it was getting dark so she called 911 for help. Pt endorsed psychosocial stressors and triggers in the ED of getting her 2nd DWI 1mo ago, caring for her grandmother, continued work, and feelings of being from her supports. In the ED she endorsed depression, helplessness, hopelessness. She admitted to daily alcohol use. VITAL SIGNS: See below. NEW TEST RESULTS: Neck CT: no swelling or hematoma noted, wnl CURRENT MEDICATIONS: See below. MENTAL STATUS EXAMINATION: General Appearance: clean, appears stated age, hospital scrubs/clothing Build: average Demeanor: less withdrawn Eye Contact: average Activity: slowed, less anxious Behavior: cooperative, less withdrawn Speech: clear, spontaneous, normal volume, reg/rate,rhythm,volume Mood: depressed, less anxious Mood ok Affect: less constricted, flat, congruent, less anxious Thought Process: logical/linear, depressed, intact, preoccupied with fear of going home due to poor relationship with mother that refuses to call or allow treatment team to reach out to her Thought Content (Delusions): none reported, denies SI yet highly concerned pt may attempt suicide if not discharged directly to rehab as endorses intense fear of going home and interacting with her mother (States she will not harm herself if sitter d/c and will talk to staff first should she have thoughts of self farm or emotional distress so she can be help thru her emotions safely as she did attempt to hang herself with a pillow case on second night of admission) , denies HI and AVH Thought Content (Other): none reported, cognitive distortions, worrisome thoughts, lacks future orientation Thought Content (Aggressive): none reported Perception (Hallucinations): none reported Perception (Other): none reported Cognition (Impairment of): none reported Cognition(Intelligence Est.): average Oriented: Awake, Alert, Oriented times three Insight: fair Judgment: fair Psychosis: Denies DIAGNOSES: Major depressive d/o recurrent severe w/o psychosis alcohol use d/o ASSESSMENT: Pt seen and states she feels "ok" today. Discussed need for belongings to be brought from home as pt spoke with [facility] who have a bed available for her on 06/15/18. P very anxious and fearful of speaking with mother to the point she doesn't even want her to know where she's going as states her mother is very controlling but is willing to allow staff to call her mother only regarding bring belongings to the hospital for the pt. States she finding abilify beneficial for mood and anxiety and tolerating well w/o side effects. Pt's fear of home/stress with mother/fear of disappointing others is concerning and considering she attempted to harm herself on the unit during second night of admission the treatment team and I are highly concerned that pt will attempt suicide again if d/c home prior to starting rehab. Pt so fearful doesn't even want to consider going home unless a rn endoscopy there with her to keep her safe. Appears to be mostly due to difficult relationship with mother and fear of hearing she disappointed her mother (be blamed for her mental health disease). Feels more calm and denies SI. Denies alcohol withdrawal. She appears less depressed although she still has negative cognitive distortions, flat/constricted affect, and worrisome thoughts. States she is attending groups and actively participating, finding it beneficial. Advised to please tell staff when she's having thoughts to harm herself so that we can help her and provided support for her to make it through the thoughts without acting on them. She sleeping better with increase in seroquel. Feels safe here. MANAGEMENT PLAN: continue plan. medications: lexapro 30mg daily abilify 5mg daily seroquel 100mg q6hr prn anxiety seroquel 300mg qhs prn insomnia TIME SPENT: 30 minutes. Vital Signs Vital Signs Date Time Temp Pulse Resp B/P (MAP) Pulse Ox O2 Delivery O2 Flow Rate FiO2 06/10/18 06:48 97.7 67 14 117/68 (84) Current Medications Current Medications Acetaminophen (Tylenol Tab) 650 mg Q6HP PRN PO HEADACHE or DISCOMFORT Last administered on 06/08/18at 09:56; Start 06/01/18 at 12:00 Acyclovir (Zovirax) 400 mg DAILY PO Last administered on 06/10/18at 09:29; Start 06/02/18 at 09:00 Al Hydrox/Mg Hydrox/Simethicone (Mylanta) 30 ml Q4HP PRN PO HEARTBURN/INDIGESTION; Start 06/01/18 at 12:00 Albuterol Sulfate (Proventil, Ventolin Hfa) 2 puff Q4HP PRN INH SHORTNESS OF BREATH; Start 06/01/18 at 13:45 Aripiprazole (AbiLIFY) 5 mg DAILY PO Last administered on 06/10/18 09:28; Start 06/05/18 at 09:00 Budesonide/ Formoterol Fumarate (Symbicort 160/ 4.5mcg) 2 puff DAILY INH Last administered on 06/10/18 09:28; Start 06/02/18 at 09:00 Doxepin HCl (SINEquan) 10 mg QHS PO Last administered on 06/02/18 19:54; Start 06/02/18 at 21:00; Stop 06/03/18 at 11:01; Status DC Escitalopram Oxalate (Lexapro) 30 mg DAILY PO Last administered on 06/10/18 09:29; Start 06/03/18 at 09:00 Folic Acid (Folic Acid) 1 mg DAILY PO Last administered on 06/10/18 09:29; Start 06/01/18 at 09:00 Home Med (Med Rec Complete!) ASDIRECTED XX ; Start 06/01/18 at 08:00; Stop 06/01/18 at 08:02; Status DC Hydroxyzine HCl (Atarax) 50 mg Q6HP PRN PO ANXIETY Last administered on 06/09/18 01:21; Start 06/02/18 at 19:45 Ibuprofen (Advil) 800 mg Q6HP PRN PO MODERATE PAIN (PS 5-7) Last administered on 06/09/18at 12:43; Start 06/09/18 at 10:45 Levothyroxine Sodium (Synthroid) 50 mcg DAILY@0600 PO Last administered on 06/10/18 06:14; Start 06/02/18 at 06:00 Lorazepam (Ativan) 2 mg ASDIRECTED PRN PO SEE PROTOCOL Last administered on 06/03/18at 20:55; Start 06/01/18 at 15:15; Stop 06/07/18 at 16:09; Status DC Magnesium Hydroxide (Milk Of Magnesia) 30 ml DAILYPRN PRN PO CONSTIPATION Last administered on 06/03/18at 21:34; Start 06/01/18 at 12:00 Miscellaneous (Unresolved Clarification Entry) SEE LABEL COMMENTS DAILY XX ; Start 06/07/18 at 09:00; Stop 06/07/18 at 16:18; Status DC Miscellaneous (Unresolved Clarification Entry) SEE LABEL COMMENTS DAILY XX ; Start 06/08/18 at 09:00; Stop 06/08/18 at 13:35; Status DC Multivitamins (Theragram-M) 1 tab DAILY PO Last administered on 06/10/18at 09:29; Start 06/01/18 at 09:00 Nicotine (Nicoderm Cq 21mg) 1 patch DAILY TD ; Start 06/01/18 at 09:00; Stop 06/01/18 at 15:29; Status DC Propranolol HCl (Inderal) 10 mg TID PO Last administered on 06/03/18at 08:55; Start 06/02/18 at 16:00; Stop 06/03/18 at 11:01; Status DC Quetiapine Fumarate (SEROquel) 25 mg Q6HP PRN PO ANXIETY Last administered on 06/02/18at 19:54; Start 06/02/18 at 19:45; Stop 06/03/18 at 10:49; Status DC Quetiapine Fumarate (SEROquel) 50 mg Q6HP PRN PO ANXIETY/AGITATION Last administered on 06/04/18at 09:09; Start 06/03/18 at 10:45; Stop 06/04/18 at 11:06; Status DC Quetiapine Fumarate (SEROquel) 100 mg Q6HP PRN PO ANXIETY/AGITATION Last administered on 06/04/18at 15:51; Start 06/04/18 at 11:15 Quetiapine Fumarate (SEROquel) 100 mg QHSP PRN PO INSOMNIA Last administered on 06/03/18at 20:55; Start 06/03/18 at 10:45; Stop 06/04/18 at 11:06; Status DC Quetiapine Fumarate (SEROquel) 200 mg QHS PO Last administered on 06/08/18at 21:13; Start 06/04/18 at 21:00; Stop 06/09/18 at 10:41; Status DC Quetiapine Fumarate (SEROquel) 300 mg QHS PO Last administered on 06/09/18at 21:25; Start 06/09/18 at 21:00 Rizatriptan Benzoate (Maxalt-Special Delivery Carrier) 10 mg DAILY PRN PO HEADACHE Last administered on 06/08/18at 12:51; Start 06/08/18 at 11:30 Thiamine HCl (Thiamine HCl) 100 mg DAILY PO Last administered on 06/10/18at 09:29; Start 06/01/18 at 09:00 Trazodone HCl (Desyrel) 50 mg QHSP PRN PO INSOMNIA; Start 06/01/18 at 12:00; Status Cancel Allergies Coded Allergies: No Known Allergies (Unverified , 06/01/18) ASHKAN RAMÍREZ DO Jun 10, 2018 10:44 am
[2018-06-10] MEDS: PROPRANOLOL 10 MG TAB PO SCH ×2 (15:20→21:43)
[2018-06-10 18:00] VITALS: BP 112/77
[2018-06-10] MEDS: hydrOXYzine 50 MG TAB PO PRN (18:56)
[2018-06-10] MEDS: QUEtiapine FUMARATE 100 MG TAB PO SCH (21:43)
[2018-06-11] MEDS: LEVOTHYROXINE 50MCG TABLET (0.05MG) PO SCH (06:14)
[2018-06-11 06:20] VITALS: BP 111/59
[2018-06-11] MEDS: MULTIVITAMINS/MINERALS THERAP 1 TAB PO SCH (09:27)
[2018-06-11] MEDS: THIAMINE 100 MG TAB PO SCH (09:27)
[2018-06-11] MEDS: SYMBICORT 160/4.5MCG INHALER 6GM INH SCH (09:27)
[2018-06-11] MEDS: ACYCLOVIR 200 MG CAPSULE PO SCH (09:27)
[2018-06-11] MEDS: FOLIC ACID 1 MG TAB PO SCH (09:27)
[2018-06-11] MEDS: PROPRANOLOL 10 MG TAB PO SCH ×3 (09:27→20:27)
[2018-06-11] MEDS: ESCITALOPRAM OXALATE 10 MG TAB (LEXAPRO) PO SCH (09:27)
--- NOTE | 2018-06-11 09:58 | MHIPNPDOC ---
[facility] Progress Note Progress Note DATE OF SERVICE: 06/11/18 HISTORY: Patient is a 27 -year-old , female, with a history of depression and alcohol use d/o who was transferred from [facility] after medically cleared due to drinking 2.5 pints of vodka and walking [place] the [place], lying in the snow with intent to , got cold and it was getting dark so she called 911 for help. Pt endorsed psychosocial stressors and triggers in the ED of getting her 2nd DWI 1mo ago, caring for her grandmother, continued work, and feelings of being from her supports. In the ED she endorsed depression, helplessness, hopelessness. She admitted to daily alcohol use. VITAL SIGNS: See below. NEW TEST RESULTS: Neck CT: no swelling or hematoma noted, wnl CURRENT MEDICATIONS: See below. MENTAL STATUS EXAMINATION: General Appearance: clean, appears stated age, hospital scrubs/clothing Build: average Demeanor: less withdrawn Eye Contact: average Activity: slowed, less anxious Behavior: cooperative, less withdrawn Speech: clear, spontaneous, normal volume, reg/rate,rhythm,volume Mood: depressed, less anxious Mood ok Affect: less constricted, less flat, congruent, less anxious Thought Process: logical/linear, less depressed, intact, preoccupied with fear of going home due to poor relationship with mother that refuses to call or allow treatment team to reach out to her Thought Content (Delusions): none reported, denies SI yet highly concerned pt may attempt suicide if not discharged directly to rehab as endorses intense fear of going home and interacting with her mother (States she will not harm herself if sitter d/c and will talk to staff first should she have thoughts of self farm or emotional distress so she can be help thru her emotions safely as she did attempt to hang herself with a pillow case on second night of admission) , denies HI and AVH Thought Content (Other): none reported, less cognitive distortions, worrisome thoughts, more future orientation Thought Content (Aggressive): none reported Perception (Hallucinations): none reported Perception (Other): none reported Cognition (Impairment of): none reported Cognition(Intelligence Est.): average Oriented: Awake, Alert, Oriented times three Insight: fair Judgment: fair Psychosis: Denies DIAGNOSES: 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 Pt spoke with [facility] who have a bed available for her on 06/15/18. Pt has worked with d/c development planner to agree on what to tell mother when d/c development planner calls regarding only discussing what items pt needs from home to be brought to hospital and not where pt is going. She is less anxious about her mother being called now that she has a plan worked out with the d/c development planner. Discussed reasons relationship with her mother is difficult (gave pt ambien at 13y/o, relying on pt to care for elderly grandmother b/c mother involved in long distance relationship, mother addicted and abusing ambien). States she finding abilify beneficial for mood and anxiety and tolerating well w/o side effects. Pt's fear of home/stress with mother/fear of disappointing others is concerning and considering she attempted to harm herself on the unit during second night of admission the treatment team and I are highly concerned that pt will attempt suicide again if d/c home prior to starting rehab. Pt so fearful doesn't even want to consider going home unless a copywriting intern there with her to keep her safe. Appears to be mostly due to difficult relationship with mother and fear of hearing she disappointed her mother (be blamed for her mental health disease). Feels more calm and denies SI. Denies alcohol withdrawal. She appears less depressed with improved negative cognitive distortions, flat/constricted affect, and worrisome thoughts. States she is attending groups and actively participating, finding it beneficial. Advised to please tell staff when she's having thoughts to harm herself so that we can help her and provided support for her to make it through the thoughts without acting on them. She sleeping better with increase in seroquel. Feels safe here. MANAGEMENT PLAN: continue plan. medications: lexapro 30mg daily abilify 5mg daily seroquel 100mg q6hr prn anxiety seroquel 300mg qhs prn insomnia TIME SPENT: 30 minutes. Vital Signs Vital Signs Date Time Temp Pulse Resp B/P (MAP) Pulse Ox O2 Delivery O2 Flow Rate FiO2 06/11/18 06:20 98.9 72 12 111/59 (76) Current Medications Current Medications Acetaminophen (Tylenol Tab) 650 mg Q6HP PRN PO HEADACHE or DISCOMFORT Last administered on 06/08/18 09:56; Start 06/01/18 at 12:00 Acyclovir (Zovirax) 400 mg DAILY PO Last administered on 06/10/18 09:29; Start 06/02/18 at 09:00 Al Hydrox/Mg Hydrox/Simethicone (Mylanta) 30 ml Q4HP PRN PO HEARTBURN/INDIGESTION; Start 06/01/18 at 12:00 Albuterol Sulfate (Proventil, Ventolin Hfa) 2 puff Q4HP PRN INH SHORTNESS OF BREATH; Start 06/01/18 at 13:45 Aripiprazole (AbiLIFY) 5 mg DAILY PO Last administered on 06/10/18 09:28; Start 06/05/18 at 09:00 Budesonide/ Formoterol Fumarate (Symbicort 160/ 4.5mcg) 2 puff DAILY INH Last administered on 06/10/18 09:28; Start 06/02/18 at 09:00 Doxepin HCl (SINEquan) 10 mg QHS PO Last administered on 06/02/18 19:54; Start 06/02/18 at 21:00; Stop 06/03/18 at 11:01; Status DC Escitalopram Oxalate (Lexapro) 30 mg DAILY PO Last administered on 06/10/18 09:29; Start 06/03/18 at 09:00 Folic Acid (Folic Acid) 1 mg DAILY PO Last administered on 06/10/18 09:29; Start 06/01/18 at 09:00 Home Med (Med Rec Complete!) ASDIRECTED XX ; Start 06/01/18 at 08:00; Stop 06/01/18 at 08:02; Status DC Hydroxyzine HCl (Atarax) 50 mg Q6HP PRN PO ANXIETY Last administered on 06/10/18 18:56; Start 06/02/18 at 19:45 Ibuprofen (Advil) 800 mg Q6HP PRN PO MODERATE PAIN (PS 5-7) Last administered on 06/09/18 12:43; Start 06/09/18 at 10:45 Levothyroxine Sodium (Synthroid) 50 mcg DAILY@0600 PO Last administered on 06/11/18 06:14; Start 06/02/18 at 06:00 Lorazepam (Ativan) 2 mg ASDIRECTED PRN PO SEE PROTOCOL Last administered on 06/03/18at 20:55; Start 06/01/18 at 15:15; Stop 06/07/18 at 16:09; Status DC Magnesium Hydroxide (Milk Of Magnesia) 30 ml DAILYPRN PRN PO CONSTIPATION Last administered on 06/03/18at 21:34; Start 06/01/18 at 12:00 Miscellaneous (Unresolved Clarification Entry) SEE LABEL COMMENTS DAILY XX ; Start 06/07/18 at 09:00; Stop 06/07/18 at 16:18; Status DC Miscellaneous (Unresolved Clarification Entry) SEE LABEL COMMENTS DAILY XX ; Start 06/08/18 at 09:00; Stop 06/08/18 at 13:35; Status DC Multivitamins (Theragram-M) 1 tab DAILY PO Last administered on 06/10/18at 09:29; Start 06/01/18 at 09:00 Nicotine (Nicoderm Cq 21mg) 1 patch DAILY TD ; Start 06/01/18 at 09:00; Stop 06/01/18 at 15:29; Status DC Propranolol HCl (Inderal) 10 mg TID PO Last administered on 06/03/18at 08:55; Start 06/02/18 at 16:00; Stop 06/03/18 at 11:01; Status DC Propranolol HCl (Inderal) 10 mg TID PO Last administered on 06/10/18at 21:43; Start 06/10/18 at 16:00 Quetiapine Fumarate (SEROquel) 25 mg Q6HP PRN PO ANXIETY Last administered on at 19:54; Start 06/02/18 at 19:45; Stop 06/03/18 at 10:49; Status DC Quetiapine Fumarate (SEROquel) 50 mg Q6HP PRN PO ANXIETY/AGITATION Last administered on 06/04/18at 09:09; Start 06/03/18 at 10:45; Stop 06/04/18 at 11:06; Status DC Quetiapine Fumarate (SEROquel) 100 mg Q6HP PRN PO ANXIETY/AGITATION Last administered on 06/04/18at 15:51; Start 06/04/18 at 11:15 Quetiapine Fumarate (SEROquel) 100 mg QHSP PRN PO INSOMNIA Last administered on 06/03/18 20:55; Start 06/03/18 at 10:45; Stop 06/04/18 at 11:06; Status DC Quetiapine Fumarate (SEROquel) 200 mg QHS PO Last administered on 06/08/18at 21:13; Start 06/04/18 at 21:00; Stop 06/09/18 at 10:41; Status DC Quetiapine Fumarate (SEROquel) 300 mg QHS PO Last administered on 06/10/18at 21:43; Start 06/09/18 at 21:00 Rizatriptan Benzoate (Maxalt-Websphere Process Server Developer) 10 mg DAILY PRN PO HEADACHE Last administered on 06/08/18 12:51; Start 06/08/18 at 11:30 Thiamine HCl (Thiamine HCl) 100 mg DAILY PO Last administered on 06/10/18 09:29; Start 06/01/18 at 09:00 Trazodone HCl (Desyrel) 50 mg QHSP PRN PO INSOMNIA; Start 06/01/18 at 12:00; Status Cancel Allergies Coded Allergies: No Known Allergies (Unverified , 06/01/18) ASHKAN RAMÍREZ DO Jun 11, 2018 9:11 am
[2018-06-11] MEDS: MOM 30ML SUSPENSION UDC PO PRN (14:04)
[2018-06-11 18:00] VITALS: BP 116/77
[2018-06-11] MEDS: QUEtiapine FUMARATE 100 MG TAB PO SCH (20:26)
[2018-06-12] MEDS: hydrOXYzine 50 MG TAB PO PRN ×2 (03:24→20:42)
[2018-06-12] MEDS: LEVOTHYROXINE 50MCG TABLET (0.05MG) PO SCH (06:12)
[2018-06-12 06:39] VITALS: BP 111/60
[2018-06-12 08:41] VITALS: BP 111/60
[2018-06-12] MEDS: FOLIC ACID 1 MG TAB PO SCH (10:14)
[2018-06-12] MEDS: PROPRANOLOL 10 MG TAB PO SCH ×3 (10:15→20:43)
[2018-06-12] MEDS: ACYCLOVIR 200 MG CAPSULE PO SCH (10:15)
[2018-06-12] MEDS: THIAMINE 100 MG TAB PO SCH (10:15)
[2018-06-12] MEDS: ESCITALOPRAM OXALATE 10 MG TAB (LEXAPRO) PO SCH (10:15)
[2018-06-12] MEDS: MULTIVITAMINS/MINERALS THERAP 1 TAB PO SCH (10:16)
[2018-06-12] MEDS: SYMBICORT 160/4.5MCG INHALER 6GM INH SCH (10:16)
--- NOTE | 2018-06-12 13:08 | MHIPNPDOC ---
[facility] Progress Note Progress Note DATE OF SERVICE: 06/12/18 HISTORY: Patient is a 27 -year-old , female, with a history of depression and alcohol use d/o who was transferred from [facility] after medically cleared due to drinking 2.5 pints of vodka and walking [place] the [place], lying in the snow with intent to , got cold and it was getting dark so she called 911 for help. Pt endorsed psychosocial stressors and triggers in the ED of getting her 2nd DWI 1mo ago, caring for her grandmother, continued work, and feelings of being from her supports. In the ED she endorsed depression, helplessness, hopelessness. She admitted to daily alcohol use. VITAL SIGNS: See below. NEW TEST RESULTS: Neck CT: no swelling or hematoma noted, wnl CURRENT MEDICATIONS: See below. MENTAL STATUS EXAMINATION: General Appearance: clean, appears stated age, hospital scrubs/clothing Build: average Demeanor: less withdrawn Eye Contact: average Activity: average, less anxious Behavior: cooperative, less withdrawn Speech: clear, spontaneous, normal volume, reg/rate,rhythm,volume Mood: depressed, less anxious Mood ok Affect: less constricted, less flat, congruent, less anxious Thought Process: logical/linear, less depressed, intact, preoccupied with fear of going home due to poor relationship with mother that refuses to call or allow treatment team to reach out to her Thought Content (Delusions): none reported, denies SI yet highly concerned pt may attempt suicide if not discharged directly to rehab as endorses intense fear of going home and interacting with her mother (States she will not harm herself if sitter d/c and will talk to staff first should she have thoughts of self farm or emotional distress so she can be help thru her emotions safely as she did attempt to hang herself with a pillow case on second night of admission) , denies HI and AVH Thought Content (Other): none reported, less cognitive distortions, worrisome thoughts, more future orientation Thought Content (Aggressive): none reported Perception (Hallucinations): none reported Perception (Other): none reported Cognition (Impairment of): none reported Cognition(Intelligence Est.): average Oriented: Awake, Alert, Oriented times three Insight: fair Judgment: fair Psychosis: Denies DIAGNOSES: 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 Pt spoke with [facility] who have a bed available for her on 06/15/18. D/c materials planner/production planner called pt's mother yesterday and items to be brought from home which the pt is relieved about. Glad that that is done. States she finding abilify beneficial for mood and anxiety and tolerating well w/o side effects. Pt's fear of home/stress with mother/fear of disappointing others is concerning and considering she attempted to harm herself on the unit during second night of admission the treatment team and I are highly concerned that pt will attempt suicide again if d/c home prior to starting rehab. Pt so fearful doesn't even want to consider going home unless a telescope repairer there with her to keep her safe. Appears to be mostly due to difficult relationship with mother and fear of hearing she disappointed her mother (be blamed for her mental health disease). Feels more calm and denies SI. Denies alcohol withdrawal. She appears less depressed with improved negative cognitive distortions, flat/constricted affect, and worrisome thoughts. States she is attending groups and actively participating, finding it beneficial. Advised to please tell staff when she's having thoughts to harm herself so that we can help her and provided support for her to make it through the thoughts without acting on them. She sleeping better with seroquel. Feels safe here. MANAGEMENT PLAN: continue plan. medications: lexapro 30mg daily abilify 5mg daily seroquel 100mg q6hr prn anxiety seroquel 300mg qhs prn insomnia TIME SPENT: 30 minutes. Vital Signs Vital Signs Date Time Temp Pulse Resp B/P (MAP) Pulse Ox O2 Delivery O2 Flow Rate FiO2 06/12/18 08:41 98.1 63 14 111/60 100 Current Medications Current Medications Acetaminophen (Tylenol Tab) 650 mg Q6HP PRN PO HEADACHE or DISCOMFORT Last administered on 06/08/18at 09:56; Start 06/01/18 at 12:00 Acyclovir (Zovirax) 400 mg DAILY PO Last administered on 06/11/18at 09:27; Start 06/02/18 at 09:00 Al Hydrox/Mg Hydrox/Simethicone (Mylanta) 30 ml Q4HP PRN PO HEARTBURN/IN DIGESTION; Start 06/01/18 at 12:00 Albuterol Sulfate (Proventil, Ventolin Hfa) 2 puff Q4HP PRN INH SHORTNESS OF BREATH; Start 06/01/18 at 13:45 Aripiprazole (AbiLIFY) 5 mg DAILY PO Last administered on 06/11/18 09:27; Start 06/05/18 at 09:00 Budesonide/ Formoterol Fumarate (Symbicort 160/ 4.5mcg) 2 puff DAILY INH Last administered on 06/11/18 09:27; Start 06/02/18 at 09:00 Doxepin HCl (SINEquan) 10 mg QHS PO Last administered on 06/02/18 19:54; Start 06/02/18 at 21:00; Stop 06/03/18 at 11:01; Status DC Escitalopram Oxalate (Lexapro) 30 mg DAILY PO Last administered on 06/11/18 09:27; Start 06/03/18 at 09:00 Folic Acid (Folic Acid) 1 mg DAILY PO Last administered on 06/11/18 09:27; Start 06/01/18 at 09:00 Home Med (Med Rec Complete!) ASDIRECTED XX ; Start 06/01/18 at 08:00; Stop 06/01/18 at 08:02; Status DC Hydroxyzine HCl (Atarax) 50 mg Q6HP PRN PO ANXIETY Last administered on 06/12/18 03:24; Start 06/02/18 at 19:45 Ibuprofen (Advil) 800 mg Q6HP PRN PO MODERATE PAIN (PS 5-7) Last administered on 06/09/18 12:43; Start 06/09/18 at 10:45 Levothyroxine Sodium (Synthroid) 50 mcg DAILY@0600 PO Last administered on 06/12/18 06:12; Start 06/02/18 at 06:00 Lorazepam (Ativan) 2 mg ASDIRECTED PRN PO SEE PROTOCOL Last administered on 06/03/18 20:55; Start 06/01/18 at 15:15; Stop 06/07/18 at 16:09; Status DC Magnesium Hydroxide (Milk Of Magnesia) 30 ml DAILYPRN PRN PO CONSTIPATION Last administered on 06/11/18 14:04; Start 06/01/18 at 12:00 Miscellaneous (Unresolved Clarification Entry) SEE LABEL COMMENTS DAILY XX ; Start 06/07/18 at 09:00; Stop 06/07/18 at 16:18; Status DC Miscellaneous (Unresolved Clarification Entry) SEE LABEL COMMENTS DAILY XX ; Start 06/08/18 at 09:00; Stop 06/08/18 at 13:35; Status DC Multivitamins (Theragram-M) 1 tab DAILY PO Last administered on 06/11/18at 09:27; Start 06/01/18 at 09:00 Nicotine (Nicoderm Cq 21mg) 1 patch DAILY TD ; Start 06/01/18 at 09:00; Stop 06/01/18 at 15:29; Status DC Propranolol HCl (Inderal) 10 mg TID PO Last administered on 06/03/18at 08:55; Start 06/02/18 at 16:00; Stop 06/03/18 at 11:01; Status DC Propranolol HCl (Inderal) 10 mg TID PO Last administered on 06/11/18at 20:27; Start 06/10/18 at 16:00 Quetiapine Fumarate (SEROquel) 25 mg Q6HP PRN PO ANXIETY Last administered on 06/02/18at 19:54; Start 06/02/18 at 19:45; Stop 06/03/18 at 10:49; Status DC Quetiapine Fumarate (SEROquel) 50 mg Q6HP PRN PO ANXIETY/AGITATION Last administered on 06/04/18at 09:09; Start 06/03/18 at 10:45; Stop 06/04/18 at 11:06; Status DC Quetiapine Fumarate (SEROquel) 100 mg Q6HP PRN PO ANXIETY/AGITATION Last administered on 06/04/18at 15:51; Start 06/04/18 at 11:15 Quetiapine Fumarate (SEROquel) 100 mg QHSP PRN PO INSOMNIA Last administered on 06/03/18at 20:55; Start 06/03/18 at 10:45; Stop 06/04/18 at 11:06; Status DC Quetiapine Fumarate (SEROquel) 200 mg QHS PO Last administered on 06/08/18at 21:13; Start 06/04/18 at 21:00; Stop 06/09/18 at 10:41; Status DC Quetiapine Fumarate (SEROquel) 300 mg QHS PO Last administered on 06/11/18at 20:26; Start 06/09/18 at 21:00 Rizatriptan Benzoate (Maxalt-Tankroom Tender) 10 mg DAILY PRN PO HEADACHE Last administered on 06/08/18at 12:51; Start 06/08/18 at 11:30 Thiamine HCl (Thiamine HCl) 100 mg DAILY PO Last administered on 06/11/18at 09:27; Start 06/01/18 at 09:00 Trazodone HCl (Desyrel) 50 mg QHSP PRN PO INSOMNIA; Start 06/01/18 at 12:00; Status Cancel Allergies Coded Allergies: No Known Allergies (Unverified , 06/01/18) ASHKAN RAMÍREZ DO Jun 12, 2018 9:16 am
[2018-06-12 18:00] VITALS: BP 105/58
[2018-06-12] MEDS: QUEtiapine FUMARATE 100 MG TAB PO SCH (20:42)
[2018-06-13] MEDS: LEVOTHYROXINE 50MCG TABLET (0.05MG) PO SCH (06:02)
[2018-06-13 06:45] VITALS: BP 102/68
[2018-06-13] MEDS: FOLIC ACID 1 MG TAB PO SCH (09:47)
[2018-06-13] MEDS: THIAMINE 100 MG TAB PO SCH (09:47)
[2018-06-13] MEDS: ACYCLOVIR 200 MG CAPSULE PO SCH (09:47)
[2018-06-13] MEDS: MULTIVITAMINS/MINERALS THERAP 1 TAB PO SCH (09:47)
[2018-06-13] MEDS: ESCITALOPRAM OXALATE 10 MG TAB (LEXAPRO) PO SCH (09:47)
[2018-06-13] MEDS: PROPRANOLOL 10 MG TAB PO SCH ×3 (09:48→20:22)
[2018-06-13] MEDS: SYMBICORT 160/4.5MCG INHALER 6GM INH SCH (09:48)
[2018-06-13 18:23] VITALS: BP 117/77
[2018-06-13] MEDS: QUEtiapine FUMARATE 100 MG TAB PO SCH (20:21)
[2018-06-13] MEDS: hydrOXYzine 50 MG TAB PO PRN (20:21)
[2018-06-14] MEDS: LEVOTHYROXINE 50MCG TABLET (0.05MG) PO SCH (06:05)
[2018-06-14 06:34] VITALS: BP 105/57
[2018-06-14] MEDS: ACYCLOVIR 200 MG CAPSULE PO SCH (09:47)
[2018-06-14] MEDS: ESCITALOPRAM OXALATE 10 MG TAB (LEXAPRO) PO SCH (09:49)
[2018-06-14] MEDS: MULTIVITAMINS/MINERALS THERAP 1 TAB PO SCH (09:49)
[2018-06-14] MEDS: THIAMINE 100 MG TAB PO SCH (09:49)
[2018-06-14] MEDS: SYMBICORT 160/4.5MCG INHALER 6GM INH SCH (09:49)
[2018-06-14] MEDS: FOLIC ACID 1 MG TAB PO SCH (09:49)
[2018-06-14] MEDS: PROPRANOLOL 10 MG TAB PO SCH ×3 (09:49→20:31)
[2018-06-14] MEDS: QUEtiapine FUMARATE 100 MG TAB PO PRN (16:09)
[2018-06-14 18:14] VITALS: BP 142/84
[2018-06-14] MEDS: QUEtiapine FUMARATE 100 MG TAB PO SCH (20:31)
[2018-06-14] MEDS: hydrOXYzine 50 MG TAB PO PRN (20:31)
[2018-06-15] MEDS: LEVOTHYROXINE 50MCG TABLET (0.05MG) PO SCH (06:01)
[2018-06-15 06:48] VITALS: BP 107/50
[2018-06-15] MEDS: SYMBICORT 160/4.5MCG INHALER 6GM INH SCH (08:39)
[2018-06-15 08:40] VITALS: BP 110/77
[2018-06-15] MEDS: MULTIVITAMINS/MINERALS THERAP 1 TAB PO SCH (08:40)
[2018-06-15] MEDS: FOLIC ACID 1 MG TAB PO SCH (08:40)
[2018-06-15] MEDS: THIAMINE 100 MG TAB PO SCH (08:40)
[2018-06-15] MEDS: ACYCLOVIR 200 MG CAPSULE PO SCH (08:40)
[2018-06-15] MEDS: PROPRANOLOL 10 MG TAB PO SCH (08:40)
[2018-06-15] MEDS: ESCITALOPRAM OXALATE 10 MG TAB (LEXAPRO) PO SCH (08:40)
--- NOTE | 2018-06-15 08:40 | MHDSPDOC ---
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 Pt endorsed psychosocial stressors and triggers in the ED of getting her 2nd DWI 1mo ago, caring for her grandmother, continued work, and feelings of being from her supports. In the ED she endorsed depression, helplessness, hopelessness. She admitted to daily alcohol use. CONSULTANTS INVOLVED: none TREATMENT AND PROGRESS ON THE UNIT : Pt was admitted to [facility], seen for psychiatric assessment and restarted on lexapro increased to 30mg daily for mood and anxiety. She was started on abilify 5mg daily for mood and seroquel 300mg qhs. She was provided seroquel 100mg q6hr prn anxiety. She attempted suicide by hanging herself with a pillow case early in her stay and was placed on 1:1 sitter for safety that was discontinued when pt mood improved with treatment and she was no longer suicidal. Pt found her medications beneficial and tolerated them well. She attended groups daily during her stay. Her symptoms improved greatly with treatment. On day of discharge she denied depression, anxiety, insomnia, SI/HI, hallucinations, delusions. She was discharged to [facility] rehab. She felt safe for discharge. DISCHARGE ASSESSMENT: Pt seen and states she feels "good" and is looking forward to going to rehab today. States she finding abilify beneficial for mood and anxiety and tolerating well w/o side effects. Feels more calm and denies SI. Denies alcohol withdrawal. She appears euthymic with future oriented thoughts toward recovery. States she is attending groups and actively participating, finding it beneficial. She sleeping better with seroquel. Feels safe to be discharged to rehab today. MENTAL STATUS EXAMINATION ON DISCHARGE: General Appearance: clean, appears stated age, hospital scrubs/clothing Build: average Demeanor: average, cooperative Eye Contact: average Activity: average Behavior: cooperative Speech: clear, spontaneous, normal volume, reg/rate,rhythm,volume Mood: euthymic, full Mood good Affect: euthymic, full, congruent Thought Process: logical/linear, future oriented, intact Thought Content (Delusions): none reported, denies SI/HI and AVH Thought Content (Other): none reported Thought Content (Aggressive): none reported Perception (Hallucinations): none reported Perception (Other): none reported Cognition (Impairment of): none reported Cognition(Intelligence Est.): average Oriented: Awake, Alert, Oriented times three Insight: good Judgment: good Psychosis: Denies MEDICATIONS ON DISCHARGE: lexapro 30mg daily abilify 5mg daily seroquel 100mg q6hr prn anxiety seroquel 300mg qhs prn insomnia PLAN/FOLLOWUP ARRANGEMENTS: [facility] The amount of time spent in the coordination of care for this patient was approximately 30 minutes. Vital Signs/I&Os Vital Signs Date Time Temp Pulse Resp B/P (MAP) Pulse Ox O2 Delivery O2 Flow Rate FiO2 06/15/18 06:48 98.3 67 12 107/50 (69) 06/14/18 08:21 Room Air 06/12/18 08:41 100 Medications Scheduled Budesonide/Formoterol (Symbicort 160-4.5 Mcg/Act) 60 Puff/Inhaler Aers, 2 PUFF INH DAILY, (Reported) Escitalopram Oxalate (Lexapro) 10 Mg Tab, 20 MG PO DAILY, (Reported) Levothyroxine Sodium (Synthroid) 50 Mcg Tab, 50 MCG PO DAILY, (Reported) Multivitamins *[facility] STOCKED* (Thera M Plus *[facility] STOCKED*) 1 Tab Tab, 1 TAB PO DAILY, (Reported) Scheduled PRN Hydroxyzine HCl (Hydroxyzine HCl) 50 Mg Tab, 50 MG PO BID PRN for ANXIETY, (Re ported) Rizatriptan Benzoate (Rizatriptan Benzoate Odt) 10 Mg Tab, 10 MG PO DAILY PRN for HEADACHE, (Reported) Miscellaneous Medications Acyclovir (Acyclovir) 400 Mg Tab, 400 MG PO, (Reported) Allergies Coded Allergies: No Known Allergies (Unverified , 06/01/18) ASHKAN RAMÍREZ DO Jun 15, 2018 08:40
== END 2018-06-15 09:35 | disposition home or self-care (01) | DRG 751 ==
LOC: M ED 03:51 → EDBD 03:51 → M ED INP 12:00 → M PSY 12:57
PROVIDERS: ADMIT Psychiatry & Neurology Psychiatry; ATTEND Psychiatry & Neurology Psychiatry
DX: F33.2 Major depressive disorder, recurrent severe without psychotic features (principal); B00.2 Herpesviral gingivostomatitis and pharyngotonsillitis; F10.10 Alcohol abuse, uncomplicated; E03.9 Hypothyroidism, unspecified; Z91.5 Personal history of self-harm; Z79.899 Other long term (current) drug therapy; J45.909 Unspecified asthma, uncomplicated; Z63.8 Other specified problems related to primary support group